=== PATIENT | male | born 1985 | race Caucasian/White ===

== ENCOUNTER 2020-01-24 06:17 | Inpatient (IN) | payer BC ==
[2020-01-24] VITALS (34 sets, daily range): BP systolic 137; BP diastolic 84; PULSE 112; TEMP 98.3; O2SAT 92–100
[~2020-01-24] VITALS: Ht 162.6 cm; Wt 92.3 kg
[2020-01-24 07:25] LABS: HEMATOCRIT 43.5 % (42.0-52.0); HEMOGLOBIN 14.1 g/dl (13.5-18.0); MEAN CELL VOLUME 100 fl (80.0-100.0); MEAN CORPUSCULAR HEMOGLOBIN 32 pg (27.0-31.0); MEAN CORPUSCULAR HGB CONC 32 g/dl (33.0-37.0); MEAN PLATELET VOLUME 8.6 fl (7.4-10.4); PLATELET COUNT 270 K/mm3 (130-400); RED BLOOD COUNT 4.37 M/mm3 (4.20-5.60); REDCELL DISTRIBUTION WIDTH-CV 15.8 % (11.5-14.5)
[2020-01-24 07:34] LABS: ALANINE AMINOTRANSFERASE 38 U/L (4-49); ALBUMIN 3.7 gm/dL (3.5-5.0); ALKALINE PHOSPHATASE 35 U/L (50-136); ANION GAP 7 mmol/L (7-16); AST,SGOT 45 U/L (15-37); BILIRUBIN,TOTAL 0.6 mg/dL (0.0-1.0); BLOOD UREA NITROGEN 22 mg/dL (9-20); CALCIUM 8.2 mg/dL (8.4-10.2); CARBON DIOXIDE 27 mmol/L (22-30); CHLORIDE 104 mmol/L (98-107); CREATININE, serum 0.84 (0.66-1.25); GLUCOSE 131 mg/dL (74-106); SODIUM 138 mmol/L (137-145); TOTAL PROTEIN 6.1 gm/dL (6.4-8.2)
[2020-01-24 07:44] LABS: POTASSIUM 2.9 mmol/L (3.4-5.0)
[2020-01-24 07:48] LABS: TROPONIN-I < 0.012 ng/mL (0.000-0.035)
[2020-01-24 09:04] LABS: BAND 32 % (0-10); LYMPHOCYTE 28 % (20.0-51.0); NEUTROPHILS 40 % (42.0-75.2); PLATELET ESTIMATE NORMAL (NORMAL)
[2020-01-24] MEDS ORDERED: SEROQUEL 200MG200 MG PO (10:09)
[2020-01-24] MEDS ORDERED: COZAAR100 MG PO (10:09)
[2020-01-24] MEDS ORDERED: NORVASC 10MG10 MG PO (10:09)
[2020-01-24] MEDS ORDERED: NEURONTIN300 MG/CAP PO (10:09)
[2020-01-24] MEDS ORDERED: FLEXERIL 1010 MG/TAB PO (10:09)
[2020-01-24] MEDS ORDERED: HCTZ 25MG TAB25 MG PO (10:09)
[2020-01-24] MEDS ORDERED: SEROQUEL50 MG PO (10:10)
[2020-01-24] MEDS ORDERED: LEXAPRO20 MG PO (10:10)
[2020-01-24] MEDS ORDERED: PERCOCET 325 MG1 TA3 PO (10:10)
[2020-01-24 20:55] LABS: ARTERIAL BLD GAS O2 SATURATION 97.6 % (92-100); ARTERIAL BLD GAS TCO2 CT 25.1; ARTERIAL BLOOD GAS BASE EXCESS -0.9 (-2-2); ARTERIAL BLOOD GAS HCO3 23.8 meq/L (22-26); ARTERIAL BLOOD GAS PCO2 39.9 mmHg (35-45); ARTERIAL BLOOD GAS PO2 97.1 mmHg (80-100); ARTERIAL BLOOD GAS pH 7.39 (7.35-7.45)
--- NOTE | 2020-01-24 21:10 | NUR ---
Arrived to the unit via stetcher; alert and oriented X 4. Able to self transfer to ICU bed. Currenlty on 6L oxymask and 02 saturations in the upper 90's. Reporting 8-9 out of 10 pain to right chest which is stabbing in nature. Toradol will be administered for pleuritic chest pain. Reports being hungry; sandwich box and fluids provided. Call light left within reach. Will continue to monitor.
[2020-01-25] VITALS (97 sets, daily range): BP systolic 130–145; BP diastolic 64–89; PULSE 101–112; TEMP 97.6–99.4; O2SAT 89–99
--- NOTE | 2020-01-25 03:27 | NUR ---
Telephone report given to SB Whitfield.
--- NOTE | 2020-01-25 04:08 | NUR ---
SB Warren from medical floor at bedside to assist patient up to medical floor. Transfers via wheelchair without difficulty. Patient alert and oriented upon transfer and VS stable.
--- NOTE | 2020-01-25 05:07 | NUR ---
Patient arrived to the medical unit room [address] [facility] wheelchair from ICU at 04:20 am. Patient awake, alert and oriented. Patient reported constant stabbing pain to his right chest area on numeric pain scale 8 out of 10. Patient states pain gets worse when he cough, with inspiration or with movement. Patient on 4L oxygen via oxymask. O2 sat 96%. IV fluid and IV antibiotic infusing well to his left AC. Left AC IV site and left forearm IV site has no s/s of complications. PRN Dilaudid given per order at 04:47 am. Call light within reach. Patient denies any needs at this time.
--- NOTE | 2020-01-25 05:56 | NUR ---
Patient states pain is tolerable and rated chest pain 4 or 5 out of 10 at this time. Call light within reach. No needs identified at this time.
[2020-01-25 08:18] LABS: MEAN CELL VOLUME 101 fl (80.0-100.0); MEAN CORPUSCULAR HGB CONC 32 g/dl (33.0-37.0); MEAN PLATELET VOLUME 8.8 fl (7.4-10.4); PLATELET COUNT 261 K/mm3 (130-400); RED BLOOD COUNT 3.52 M/mm3 (4.20-5.60)
[2020-01-25 08:23] LABS: HEMATOCRIT 35.4 % (42.0-52.0); HEMOGLOBIN 11.4 g/dl (13.5-18.0); MEAN CORPUSCULAR HEMOGLOBIN 32 pg (27.0-31.0)
[2020-01-25 08:33] LABS: ALBUMIN 3.3 gm/dL (3.5-5.0); BILIRUBIN,TOTAL 0.6 mg/dL (0.0-1.0); CALCIUM 7.8 mg/dL (8.4-10.2); CREATININE, serum 0.64 (0.66-1.25); MAGNESIUM 2.2 mg/dL (1.6-2.3); POTASSIUM 3.4 mmol/L (3.4-5.0); TOTAL PROTEIN 5.9 gm/dL (6.4-8.2)
[2020-01-25 08:44] LABS: ANISOCYTOSIS 1+; BAND 50 % (0-10); EOSINOPHIL 2 % (0-4); LYMPHOCYTE 11 % (20.0-51.0); NEUTROPHILS 36 % (42.0-75.2); PLATELET ESTIMATE NORMAL (NORMAL)
--- NOTE | 2020-01-25 09:56 | NUR ---
Patient alert and oriented, complain of chest pain at 10/10. patient complain that pain get worse eith breathing. gave norco and dilaudid this am to ease pain. tachy on tele. DISABILITY SERVICES COORDINATOR brought patient's belonging to him on medical floor, belonging delivered to patient. Patient resting in bed at this time.
--- NOTE | 2020-01-25 13:12 | NUR ---
The patient is a PUI for COVID and awaiting results. SW contacted the patient to discuss discharge plan. The patient lives in [place] with his , Susanne (ph#[phone]). He reports independence with ADLs and does not have any DME. The patient's PCP is Aram Cooper at the [facility] and he receives his medications from [facility]. He reports no difficulties obtaining his meds. The patient does not have a DPOA-HC completed. The patient plans to return home with his upon discharge. SW contacted and reviewed the above information with the patient's , Susanne. Susanne reports no concerns with the patient returning back home with her. The patient is currently on 4 liters of oxygen. SW to continue to follow.
--- NOTE | 2020-01-25 17:32 | NUR ---
Patient continue to receive toradol, dilaudid, norco alternatively for pain. Dilaudid 0.25mg IV q2h prn changed to Q4H. IVF decreased from 125ml/hr to 75ml/hr. assessed patient, RN decided patient is can be independent in his room a this time. Patient given bathroom priviledges. Patient have no other concern at this time.
--- NOTE | 2020-01-25 18:37 | NUR ---
Patient rating pain in lungs 09/24, has been this way, gets a little better but then comes back. Will administer Dilaudid as prescribed. Patient resting in bed watching TV. Denies additional needs.
--- NOTE | 2020-01-26 01:21 | NUR ---
Patient resting in the bed and watching TV. Patient pleasant, alert and oriented x4. Patient c/o right upper chest pain 8 out of 10. PRN [place] and Flexeril given at 21:15 pm. PRN [place] given at 23:35 pm per patient request. Scheduled antibiotics given per order. Call light within reach. No further needs reported at this time.
[2020-01-26 03:40] VITALS: BP 146/90; PULSE 108; TEMP 99.7
--- NOTE | 2020-01-26 05:50 | NUR ---
Patient slept well throughout the shift. Open eyes and awake briefly when staff enters the room and checking vitals and giving meds. PRN [place] and Tylenol givenn at 03:35 am. Ambulates to the bathroom to void independently with steady gait. Call light within reach. Will give report to day shift RN.
[2020-01-26 08:24] VITALS: BP 136/65; PULSE 109; TEMP 98.5
[2020-01-26 10:55] LABS: HEMOGLOBIN 11.1 g/dl (13.5-18.0); MEAN CELL VOLUME 101 fl (80.0-100.0); MEAN CORPUSCULAR HEMOGLOBIN 32 pg (27.0-31.0); MEAN CORPUSCULAR HGB CONC 32 g/dl (33.0-37.0); MEAN PLATELET VOLUME 8.9 fl (7.4-10.4); PLATELET COUNT 299 K/mm3 (130-400); RED BLOOD COUNT 3.46 M/mm3 (4.20-5.60); REDCELL DISTRIBUTION WIDTH-CV 15.9 % (11.5-14.5)
[2020-01-26 10:58] LABS: HEMATOCRIT 34.8 % (42.0-52.0)
[2020-01-26 11:01] LABS: CALCIUM 8.6 mg/dL (8.4-10.2); CREATININE, serum 0.71 (0.66-1.25); POTASSIUM 3.9 mmol/L (3.4-5.0)
[2020-01-26 11:20] LABS: BAND 35 % (0-10); EOSINOPHIL 1 % (0-4); LYMPHOCYTE 3 % (20.0-51.0); NEUTROPHILS 57 % (42.0-75.2); PLATELET ESTIMATE NORMAL (NORMAL)
[2020-01-26 12:33] VITALS: BP 134/76; PULSE 99; TEMP 98.6
[2020-01-26 16:12] VITALS: BP 130/69; PULSE 108; TEMP 98.6
--- NOTE | 2020-01-26 17:00 | NUR ---
Patient alert and oriented. continue to complain of chest pain. chest xray was repeated, result impression shows multifocal pneumonia, slightly improved in the right lung, small pleural effusion. O2 reduced from 4L to 3L O2 SAT >92%. Patient continue to get dilaudid and [place] PRN for pain. Patient had a shower today. SARS-CoV-2 (PCR) result came back negative. Patient room was changed from 1 to 10. Patient resting in room at this time.
[2020-01-26 19:31] VITALS: BP 146/76; PULSE 96; TEMP 98
--- NOTE | 2020-01-26 23:24 | NUR ---
Patient laying in bed and watching TV upon enter the room. Patient alert and oriented x4. Patient states he is feeling better today. But still have pain/pressure to his right lung area. Patient rated constant stabbing pain/pressure 6 out of 10. Noticed patient left nasal canula by his pillow. Patient states his breathing is ok at this moment. Denies dyspnea or SOB. Encouraged patient to use nasal canula for dyspnea or SOB. Patient verbalized understanding. Scheduled medications given per order. PRN Dilaudid and Flexeril given for pain at 1951. Call light within reach. Patient denies any needs at this time.
[2020-01-27] VITALS (7 sets, daily range): BP systolic 114–142; BP diastolic 60–86; PULSE 77–101; TEMP 97.9–98.6
--- NOTE | 2020-01-27 02:25 | NUR ---
Patient was sitting up on the edge of bed at this time. Patient reports he was moving around in bed and somehow left forearm IV got pulled out. IV antibiotic infusing well via left AC. PRN Dilaudid given at this time per patient request for chest pain 8 out of 10. Patient describes chest pain as constant stabbing pain to hir right chest area. Offered Diet Pepsi per patient request. Call light within reach. No further needs reported.
[2020-01-27 06:01] LABS: BASO % 0.4 % (0.0-2.0); EOS # 0.1 (0.0-0.7); EOS % 1.2 % (0-4.0); GRAN # 6.1 (1.4-6.5); GRAN % 78.8 % (42.2-75.2); HEMOGLOBIN 11.6 g/dl (13.5-18.0); LYMPH % 12.7 % (20.0-51.0); MEAN CELL VOLUME 99 fl (80.0-100.0); MEAN CORPUSCULAR HEMOGLOBIN 32 pg (27.0-31.0); MEAN CORPUSCULAR HGB CONC 33 g/dl (33.0-37.0); MEAN PLATELET VOLUME 8.9 fl (7.4-10.4); MONO # 0.5 (0.1-0.6); MONO % 5.9 % (1.7-9.3); PLATELET COUNT 314 K/mm3 (130-400); REDCELL DISTRIBUTION WIDTH-CV 15.7 % (11.5-14.5)
[2020-01-27 06:03] LABS: HEMATOCRIT 35.6 % (42.0-52.0)
[2020-01-27 06:09] LABS: ALBUMIN 3.6 gm/dL (3.5-5.0); BILIRUBIN,TOTAL 0.7 mg/dL (0.0-1.0); CREATININE, serum 0.66 (0.66-1.25); POTASSIUM 4.3 mmol/L (3.4-5.0); TOTAL PROTEIN 6.9 gm/dL (6.4-8.2)
--- NOTE | 2020-01-27 06:20 | NUR ---
Patient slept well throughout the shift. Woke up a few times to go to bathroom and falls back to sleep right away. Patient appears comfortable while he was sleeping. FLACC score 0 while he was sleeping. No acute distress noted. Call light within reach.
--- NOTE | 2020-01-27 08:45 | NUR ---
Patient laying in bed watching TV. A&Ox4. VSS 3L NC O2. No reported SOB. IV CDI. Patient reporting pain in right side chest/lungs rating 8/10. Pain medication given when requested. No further needs expressed from the patient. Call light within reach
--- NOTE | 2020-01-27 09:15 | NUR ---
Patient laying in bed watching TV. A&Ox4. VSS 3L NC O2. IV CDI. Reporting pain in right chest. Pain medication given when requesed. No reported SOB or discomfort. No further needs expressed from the patient. Call light within reach
--- NOTE | 2020-01-27 15:24 | NUR ---
SPO2M 95% DECREASED TO 2 LPM NC
--- NOTE | 2020-01-27 15:35 | NUR ---
SW informed by charge nurse that patient would not be discharging on this day 01/27/20 due to recent chest xray and anibiotics. SW will continue to follow.
--- NOTE | 2020-01-27 17:33 | NUR ---
Patient had complaints of pain in right side of chest that has been unrelieved with pain medication. Patient is unhappy with nursing staff and the hospitalist for not caring about his pain. Doctor aware and nursing staff and doctor have talked with the patient. A&Ox4. VSS 3L NC O2. No reported SOB. IV CDI. No further needs expressed from the patient. Call light within reach
--- NOTE | 2020-01-27 21:00 | NUR ---
PT RESTING IN BED. WATCHING TV. PLEASANT AND COOPERATIVE. IV SITE TO LT F/A LEAKING FLUIDS AND PAINFUL. BLOOD RETURN. RESTARTED TO LT WRIST. SEE MAR FOR TOROADOL IV GIVEN. PT VERY TALKATIVE. SEE ASSESSMENT COMPLETED. SEE MAR FOR NORCO GIVEN. ASKED ABOUT STATUS OF DILAUDID ORDER.
[2020-01-28 03:39] VITALS: BP 107/52; PULSE 84; TEMP 98.1
[2020-01-28 07:06] LABS: HEMATOCRIT 37.4 % (42.0-52.0); HEMOGLOBIN 12.3 g/dl (13.5-18.0); MEAN CELL VOLUME 97 fl (80.0-100.0); MEAN CORPUSCULAR HEMOGLOBIN 32 pg (27.0-31.0); MEAN CORPUSCULAR HGB CONC 33 g/dl (33.0-37.0); MEAN PLATELET VOLUME 8.7 fl (7.4-10.4); PLATELET COUNT 365 K/mm3 (130-400); RED BLOOD COUNT 3.86 M/mm3 (4.20-5.60); REDCELL DISTRIBUTION WIDTH-CV 15.3 % (11.5-14.5)
[2020-01-28 07:11] LABS: CALCIUM 9.4 mg/dL (8.4-10.2); CREATININE, serum 0.66 (0.66-1.25); POTASSIUM 4.4 mmol/L (3.4-5.0)
[2020-01-28 08:08] VITALS: BP 135/88; PULSE 95; TEMP 97.5
--- NOTE | 2020-01-28 09:08 | NUR ---
Pt assessment completed and charted, medications administered per apr. Pt A&O, independent in room, on room air, breathing is even and unlabored. Pt denies SOB. Pt sitting in recliner, cooperative w/ cares, appears very relaxed, watching TV. Lt lung garcia CTA, rt lung garcia coarse. HRRR, pulses strong bilaterally. BS active X4. No edema noted. Pt c/o pain to "rt lung" during bedside report and then "lt lung" during assessment. Pt states "10/24" and then "11/24" and "it feels like im being murdered, I've never been murdered, but thats what it feels like". Pt denies N/V/D, dizziness, numbness or tingling. Pt states he has a cough but "tries not to cough or sneeze" because it hurts everette much. Pt received [place] PRN. Pt then stated, "if you just give me toradol now I'll be happy". No further needs expressed at this time.
[2020-01-28 09:54] LABS: BAND 5 % (0-10); LYMPHOCYTE 12 % (20.0-51.0); NEUTROPHILS 81 % (42.0-75.2); PLATELET ESTIMATE INCREASED (NORMAL)
[2020-01-28 11:50] VITALS: BP 131/84; PULSE 86; TEMP 97.6
[2020-01-28 16:22] VITALS: BP 138/83; PULSE 91; TEMP 98.2
--- NOTE | 2020-01-28 16:24 | NUR ---
Pt rating pain 9/10, requesting toradol and paulina. Pt lounging in recliner, one leg kicked up, playing on phone. Pt doesn't appear to be in any distress or discomfort.
--- NOTE | 2020-01-28 18:40 | NUR ---
Report received from SB Sorensen. Pt lying in recliner with legs propped up on bedside table upon entering room. Reports intermittent chest pain to right side, reports pain is bearable at this time but would like pain medications when they are due. Call light in reach, will continue to monitor.
--- NOTE | 2020-01-28 20:56 | NUR ---
Shift assessment complete. Pt resting in recliner watching tv. Reports pain 7/10 to right chest and chronic back pain. Flexeril administered for back pain and oxycodone administered for chest pain. Scattered small bruises noted to back. 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 Heart RRR, lungs CTA, A&Ox4. Denies other needs at this time. Call light in reach.
[2020-01-28 21:17] VITALS: BP 139/83; PULSE 86; TEMP 98.3
[2020-01-28 23:48] VITALS: BP 135/67; PULSE 82; TEMP 97.5
[2020-01-29 04:18] VITALS: BP 135/74; PULSE 80; TEMP 97.6
[2020-01-29 06:41] LABS: CREATININE, serum 0.71 (0.66-1.25); POTASSIUM 4.5 mmol/L (3.4-5.0)
[2020-01-29 06:47] LABS: HEMATOCRIT 37.9 % (42.0-52.0); HEMOGLOBIN 12.3 g/dl (13.5-18.0); MEAN CELL VOLUME 96 fl (80.0-100.0); MEAN CORPUSCULAR HEMOGLOBIN 31 pg (27.0-31.0); MEAN CORPUSCULAR HGB CONC 33 g/dl (33.0-37.0); MEAN PLATELET VOLUME 8.7 fl (7.4-10.4); PLATELET COUNT 389 K/mm3 (130-400); RED BLOOD COUNT 3.93 M/mm3 (4.20-5.60); REDCELL DISTRIBUTION WIDTH-CV 15.8 % (11.5-14.5)
[2020-01-29 07:49] VITALS: BP 140/89; PULSE 93; TEMP 98.3
[2020-01-29 08:33] LABS: BAND 3 % (0-10); LYMPHOCYTE 35 % (20.0-51.0); METAMYELOCYTE 4 % (0-0); NEUTROPHILS 45 % (42.0-75.2)
[2020-01-29 08:34] LABS: PLATELET ESTIMATE NORMAL (NORMAL)
--- NOTE | 2020-01-29 10:47 | NUR ---
SW met with the patient to follow up. The patient states he is doing better. He states that he had a bad experience with the hospitalist this weekend and wanted to speak to a patient advocate. SW provided support. The patient states that he has no concerns about returning home with his upon discharge. SW attempted to notify Jamila, risk management. SW left her a message. No additional needs at this time.
[2020-01-29] MEDS ORDERED: PREDNISONE 5MG5 MG PO (11:19)
[2020-01-29] MEDS ORDERED: CEFTIN500 MG PO (11:20)
[2020-01-29] MEDS ORDERED: LEVAQUIN 750MG750 M1 PO (11:21)
[2020-01-29] MEDS ORDERED: PERCOCET 325 MG1 TA3 PO (11:21)
--- NOTE | 2020-01-29 11:53 | NUR ---
Patient resting in recliner, call light in reach. Patient was given the okay to go home. Patient denies any questions at this time.
[2020-01-29 12:28] VITALS: BP 135/88; PULSE 101; TEMP 98.3
--- NOTE | 2020-01-29 17:36 | NUR ---
Patient was discharged home this afternoon. Reviewed med list and discharge summary with patient. He denied any questions. Patient was transferred via staff member to his car.
== END 2020-01-29 12:35 | disposition home or self-care (01) | DRG 871 ==
LOC: COL.ER 06:17 → MEDICAL 09:59 → COL.ER 09:59 → PEDS 10:01 → ICU 10:01 → MEDICAL 10:01 → PEDS 01-25 05:46 → MEDICAL 01-26 11:00
PROVIDERS: Emergency Medicine; Family Medicine; Nurse Practitioner Family; Physician Assistant; Student in an Organized Health Care Education/Training Program; ADMIT Student in an Organized Health Care Education/Training Program
DX: A41.9 Sepsis, unspecified organism (principal); J18.9 Pneumonia, unspecified organism; J96.01 Acute respiratory failure with hypoxia; Q25.72 Congenital pulmonary arteriovenous malformation; E87.2 Acidosis; Z20.828 Contact with and (suspected) exposure to other viral communicable diseases; G89.29 Other chronic pain; M54.9 Dorsalgia, unspecified; E87.6 Hypokalemia; E83.42 Hypomagnesemia; D72.819 Decreased white blood cell count, unspecified; G47.00 Insomnia, unspecified; F41.9 Anxiety disorder, unspecified; R07.89 Other chest pain
CPT/HCPCS: 99223-AI; 99232-AI; 99233-AI; 99239; A9284; J0696; J1100; J1170; J1650; J1885; J1956; J2270; J2543; J3370; J3475; J3480; J7030; J7050; J7120; J7512; Q9967

== ENCOUNTER 2020-01-31 10:45 | Emergency (ER) | payer BC ==
[~2020-01-31] VITALS: Ht 162.6 cm; Wt 86.4 kg
[~2020-01-31 10:45] MED LIST: CEFTIN500 MG PO; COZAAR100 MG PO; FLEXERIL 1010 MG/TAB PO; HCTZ 25MG TAB25 MG PO; LEVAQUIN 750MG750 M1 PO; LEXAPRO20 MG PO; NEURONTIN300 MG/CAP PO; NORVASC 10MG10 MG PO; PERCOCET 325 MG1 TA3 PO; PREDNISONE 5MG5 MG PO; SEROQUEL 200MG200 MG PO; SEROQUEL50 MG PO
[2020-01-31 12:07] LABS: INR 1.2 (0.8-3.0); PROTHROMBIN TIME 13.2 SECONDS (9.7-12.8)
[2020-01-31 12:30] LABS: ALANINE AMINOTRANSFERASE 155 U/L (4-49); ALBUMIN 4.7 gm/dL (3.5-5.0); ALKALINE PHOSPHATASE 63 U/L (50-136); ANION GAP 15 mmol/L (7-16); AST,SGOT 40 U/L (15-37); BILIRUBIN,TOTAL 0.7 mg/dL (0.0-1.0); BLOOD UREA NITROGEN 19 mg/dL (9-20); CALCIUM 9.9 mg/dL (8.4-10.2); CARBON DIOXIDE 24 mmol/L (22-30); CHLORIDE 99 mmol/L (98-107); CREATININE, serum 0.77 (0.66-1.25); GLUCOSE 142 mg/dL (74-106); POTASSIUM 4.7 mmol/L (3.4-5.0); SODIUM 137 mmol/L (137-145); TOTAL PROTEIN 8.4 gm/dL (6.4-8.2)
[2020-01-31 12:39] LABS: HEMATOCRIT 41.9 % (42.0-52.0); HEMOGLOBIN 13.9 g/dl (13.5-18.0); MEAN CELL VOLUME 96 fl (80.0-100.0); MEAN CORPUSCULAR HEMOGLOBIN 32 pg (27.0-31.0); MEAN CORPUSCULAR HGB CONC 33 g/dl (33.0-37.0); MEAN PLATELET VOLUME 8.8 fl (7.4-10.4); PLATELET COUNT 473 K/mm3 (130-400); RED BLOOD COUNT 4.36 M/mm3 (4.20-5.60)
[2020-01-31 12:43] LABS: TROPONIN-I < 0.012 ng/mL (0.000-0.035)
[2020-01-31 12:51] LABS: BAND 6 % (0-10); LYMPHOCYTE 7 % (20.0-51.0); MYELOCYTE 1 % (0-0); NEUTROPHILS 79 % (42.0-75.2)
[2020-01-31 12:52] LABS: PLATELET ESTIMATE INCREASED (NORMAL); STOMATOCYTE 1+
[2020-01-31 12:53] LABS: POIKILOCYTOSIS 1+
[2020-01-31] MEDS ORDERED: NAPROSYN500 MG PO (12:54)
[2020-01-31 13:11] VITALS: BP 145/107; PULSE 108; TEMP 98.4
[2020-02-01 08:35] LABS: PATHOLOGY DIFF REVIEW OK +
== END 2020-01-31 13:12 | disposition home or self-care (01) ==
LOC: COL.ER 10:45
PROVIDERS: Nurse Practitioner Primary Care
DX: R07.81 Pleurodynia (principal); Z79.52 Long term (current) use of systemic steroids
CPT/HCPCS: J7030